=== PATIENT | male | born 1985 | race Hispanic/Latino ===

== ENCOUNTER 2017-05-08 17:38 | Emergency (ER) | payer OTHER ==
[2017-05-08] MEDS ORDERED: DILAUDID IV ONE ×2 (20:20→23:06)
[2017-05-08] MEDS ORDERED: TORADOL IV ONE (20:20)
[2017-05-08] MEDS ORDERED: CLEOCIN 600 MG/50 mL 600 MG/50 ML BAG IV ONE (20:20)
[2017-05-08] MEDS ORDERED: BOOSTRIX IM ONE (20:20)
[2017-05-08] MEDS ORDERED: VALIUM IV ONE (20:21)
--- NOTE | 2017-05-08 20:46 | Emergency Department Report ---
- General Chief complaint: Skin/Abscess/Foreign Body Stated complaint: LEFT FOOT PAIN Time Seen by Provider: 05/08/17 20:04 Source: patient Mode of arrival: Ambulatory Limitations: No Limitations - History of Present Illness Initial comments: 31-year-old withPast medical history presents to Hospital complaints of worsening left foot infection. Patient has a callus at the left fifth MTP area of the plantar surface of the foot. Patient had a chronic callous and had been picking at the area prior to start of infection. The callus began to have redness and purulent drainage 10 days ago. He called an urgent care center and Bactrim was prescribed without physical examination. Patient has been on Bactrim for the past 3 days and states that area of redness has increased however, no longer having any active drainage. Patient complains of moderate left foot tenderness at area of infection and generalized foot swelling. Patient denies fevers. Tetanus status unknown. - Related Data Previous Rx's Medication Instructions Recorded Last Taken Type Clindamycin [Clindamycin CAP] 450 mg PO Q6HR 10 Days capsule 05/08/17 Unknown Rx HYDROcodone/APAP 5-325 [[place] 1 each PO Q6HR PRN #20 tablet 05/08/17 Unknown Rx 5/325] Ibuprofen [Motrin] 800 mg PO Q8HR PRN #30 tablet 05/08/17 Unknown Rx Allergies Allergy/AdvReac Type Severity Reaction Status Date / Time No Known Allergies Allergy Unverified 05/08/17 20:20 Abscess Boil HPI - HPI Chief Complaint: Skin/Abscess/Foreign Body Stated Complaint: LEFT FOOT PAIN Time Seen by Provider: 05/08/17 20:04 Home Medications: Previous Rx's Medication Instructions Recorded Last Taken Type Clindamycin [Clindamycin CAP] 450 mg PO Q6HR 10 Days capsule 05/08/17 Unknown Rx HYDROcodone/APAP 5-325 [[place] 1 each PO Q6HR PRN #20 tablet 05/08/17 Unknown Rx 5/325] Ibuprofen [Motrin] 800 mg PO Q8HR PRN #30 tablet 05/08/17 Unknown Rx Allergies/Adverse Reactions: Allergies Allergy/AdvReac Type Severity Reaction Status Date / Time No Known Allergies Allergy Unverified 05/08/17 20:20 ED Review of Systems ROS: Stated complaint: LEFT FOOT PAIN Other details as noted in HPI Comment: All other systems reviewed and negative Other: Constitutional: No fevers chills Eyes: No eye pain visual changes or discharge ENT: No ear pain or throat pain Neck: Denies pain Respiratory: Denies cough wheezing shortness of breath Cardiovascular: Denies chest pain, palpitations, syncope GI: Denies abdominal pain, nausea, vomiting, diarrhea : Denies dysuria Musculoskeletal: as per hpi Skin: as per hpi Neurologic: Denies headache, numbness, weakness Psychiatric: Denies suicidal ideation, hallucinations ED Past Medical Hx - Past Medical History Previous Medical History?: Yes - Surgical History Past Surgical History?: No - Social History Smoking Status: Current Every Day Smoker Substance Use Type: None - Medications Home Medications: Home Medications Medication Instructions Recorded Confirmed Last Taken Type Clindamycin [Clindamycin CAP] 450 mg PO Q6HR 10 Days capsule 05/08/17 Unknown Rx HYDROcodone/APAP 5-325 [[place] 1 each PO Q6HR PRN #20 tablet 05/08/17 Unknown Rx 5/325] Ibuprofen [Motrin] 800 mg PO Q8HR PRN #30 tablet 05/08/17 Unknown Rx ED Physical Exam - General Limitations: No Limitations - Other Other exam information: General: No limitations, patient is alert in no acute distress Head exam: Atraumatic, normocephalic Eyes exam: Normal appearance ENT: Moist mucous membrane Neck exam: Normal inspection, full range of motion, no meningismus nontender Respiratory exam: Clear to auscultation bilateral, no wheezes, rales, crackles Cardiovascular: Normal rate and rhythm, normal heart sounds Abdomen: Soft, nondistended, and nontender, with normal bowel sounds, no rebound, or guarding Extremity: Full range of motion normal inspection no deformity Back: Normal Inspection, full range of motion, no tenderness Neurologic: Alert, oriented x3, cranial nerves intact, no motor or sensory deficit Psychiatric: normal affect, normal mood Skin: Callous noted as left foot fifth MTP area. Positive localized swelling, erythema, and warmth. Generalized left foot swelling with tenderness. Rest streaking noted extending to the mid foot ED Course Vital Signs 05/08/17 17:46 Temperature 98.1 F Pulse Rate 77 Respiratory 18 Rate Blood Pressure 124/80 O2 Sat by Pulse 99 Oximetry - Reevaluation(s) Reevaluation #1: 05/08/17 20:47 Medications ordered: Clindamycin, Toradol, tetanus, Dilaudid, Valium, and awaiting I&D set. Blood sugar pending. Labs pending. xray pending - I & D Left Foot Type of Procedure: Simple Blade Size: 11 I & D Procedure: betadine prep, sterile drapes applied, sterile dressing applied , gauze wick placed Progress: about 2-3 ml of purulent drainage, culture sent ED Medical Decision Making - Lab Data Result diagrams: 05/08/17 21:19 05/08/17 21:16 Lab Results 05/08/17 05/08/17 Range/Units 21:16 21:19 WBC 7.8 (4.5-11.0) K/mm3 RBC 4.28 (3.65-5.03) M/mm3 Hgb 14.2 (11.8-15.2) gm/dl Hct 40.8 (35.5-45.6) % MCV 95 H (84-94) fl MCH 33 H (28-32) pg MCHC 35 H (32-34) % RDW 13.1 L (13.2-15.2) % Plt Count 194 (140-440) K/mm3 Lymph % (Auto) 35.8 H (13.4-35.0) % Hopkins % (Auto) 7.6 H (0.0-7.3) % Eos % (Auto) 7.0 H (0.0-4.3) % Baso % (Auto) 0.7 (0.0-1.8) % Lymph # 2.8 (1.2-5.4) K/mm3 Hopkins # 0.6 (0.0-0.8) K/mm3 Eos # 0.5 H (0.0-0.4) K/mm3 Baso # 0.1 (0.0-0.1) K/mm3 Seg Neutrophils % 48.9 (40.0-70.0) % Seg Neutrophils # 3.8 (1.8-7.7) K/mm3 Sodium 139 (137-145) mmol/L Potassium 4.2 (3.6-5.0) mmol/L Chloride 101.2 (98-107) mmol/L Carbon Dioxide 26 (22-30) mmol/L Anion Gap 16 mmol/L BUN 12 (9-20) mg/dL Creatinine 0.8 (0.8-1.5) mg/dL Estimated GFR > 60 ml/min BUN/Creatinine Ratio 15 % Glucose 88 (75-100) mg/dL Calcium 8.8 (8.4-10.2) mg/dL - Radiology Data Radiology results: report reviewed X-ray left foot: 5 mm metallic linear foreign body plantar lateral junction of the midfoot and hindfoot. No soft tissue gas. No bony abnormality identified - Medical Decision Making Patient tolerated I&D well. Culture sent. Clindamycin provided in the ED and will be added to current medications in addition to pain medicine - Differential Diagnosis abscess, cellulitis, immunocompromise Critical Care Time: No Critical care attestation.: If time is entered above; I have spent that time in minutes in the direct care of this critically ill patient, excluding procedure time. ED Disposition Clinical Impression: Foot abscess, left, Cellulitis of foot, left, Foreign body in foot, left Disposition: DC-01 TO HOME OR SELFCARE Is pt being admited?: No Does the pt Need Aspirin: No Condition: Stable Instructions: Abscess (ED), Cellulitis (ED) Additional Instructions: Taken medication as prescribed. Return in 2 days or follow-up with your primary care doctor for packing removal and wound recheck. Please return if symptoms worsen as indicated by your discharge instructions and as discussed. Avoid soaking the foot but may wash with soapy cloth. You may wash foot with soapy water as tolerated once packing is removed but would still avoid soaking until wound healed. Prescriptions: Clindamycin [Clindamycin CAP] 450 mg PO Q6HR 10 Days capsule HYDROcodone/APAP 5-325 [[place] 5/325] 1 each PO Q6HR PRN #20 tablet PRN Reason: Pain Ibuprofen [Motrin] 800 mg PO Q8HR PRN #30 tablet PRN Reason: Pain Referrals: PRIMARY CARE, [Primary Care Provider] - 2-3 Days Forms: Work/School Release Form(ED) Time of Disposition: 23:09
[2017-05-08 21:37] LABS: Basophils % (Auto) 0.7 % (0.0-1.8); Hematocrit 40.8 % (35.5-45.6); Hemoglobin 14.2 gm/dl (11.8-15.2); Mean Corpuscular HGB Conc 35 % (32-34); Mean Corpuscular Hemoglobin 33 pg (28-32); Mean Corpuscular Volume 95 fl (84-94); Platelet Count 194 K/mm3 (140-440); Red Blood Count 4.28 M/mm3 (3.65-5.03); Red Cell Distribution Width 13.1 % (13.2-15.2); White Blood Count 7.8 K/mm3 (4.5-11.0)
[2017-05-08 21:49] LABS: Anion Gap 16 mmol/L; BUN/Creatinine Ratio 15; Blood Urea Nitrogen 12 mg/dL (9-20); Calcium 8.8 mg/dL (8.4-10.2); Carbon Dioxide 26 mmol/L (22-30); Chloride 101.2 mmol/L (98-107); Glucose 88 mg/dL (75-100); Potassium 4.2 mmol/L (3.6-5.0); Sodium 139 mmol/L (137-145)
--- NOTE | 2017-05-08 21:49 | XRay Report ---
FINAL REPORT EXAM: XR FOOT 3+V LT HISTORY: left foot infection TECHNIQUE: Three views left foot Comparison: None FINDINGS: There is a 5 millimeter metallic linear density projecting over the plantar lateral soft tissues at the junction of the midfoot with the hindfoot. There is no fracture or dislocation. There is no focal osteolysis to suggest osteomyelitis. There is no bony abnormality. There is no soft tissue gas. IMPRESSION: 5 millimeter metallic linear foreign body plantar lateral junction of the midfoot with the hindfoot, marked on the oblique image of the foot. No soft tissue gas. No bony abnormality identified.
[2017-05-08] MEDS ORDERED: XYLOCAINE 2% INFILTRATI ONE (22:36)
[2017-05-08] MEDS ORDERED: XYLOCAINE 1% 20 mL INFILTRATI ONE (23:02)
[2017-05-09 00:58] VITALS: BP 118/72
== END 2017-05-08 23:35 | disposition home or self-care (01) ==
LOC: ED 17:38
DX: L02.612 Cutaneous abscess of left foot (principal); L03.116 Cellulitis of left lower limb; F17.200 Nicotine dependence, unspecified, uncomplicated
CPT/HCPCS: 10060; 36415; 73630; 80048; 85025; 87076; 87116; 87186; 90471; 90715; 96365; 96375; 96376; 99284; J1170; J1885; J3360; 96374

== ENCOUNTER 2017-05-11 08:10 | Emergency (ER) | payer OTHER ==
[2017-05-11 09:20] VITALS: BP 114/80
[2017-05-11] MEDS ORDERED: TRIPLE ANTIBIOTIC TP ONE (10:34)
--- NOTE | 2017-05-11 10:40 | Emergency Department Report ---
Suture/Staple Removal - HPI Chief Complaint: Extremity Injury, Lower Stated Complaint: LEFT FOOT NEEDS NEW DRESSING Time Seen by Provider: 05/11/17 10:24 When Sutures or [place] Placed: 3 Wound Location: left foot ED Review of Systems ROS: Stated complaint: LEFT FOOT NEEDS NEW DRESSING Other details as noted in HPI Comment: All other systems reviewed and negative Constitutional: denies: chills, fever Gastrointestinal: vomiting (after taking a norco ), other (tolerating po clindamycin ). denies: abdominal pain, diarrhea Musculoskeletal: other (L foot pain ). denies: joint swelling Skin: change in color ED Past Medical Hx - Past Medical History Previous Medical History?: No - Surgical History Past Surgical History?: No - Social History Smoking Status: Current Every Day Smoker Substance Use Type: Prescribed - Medications Home Medications: Home Medications Medication Instructions Recorded Confirmed Last Taken Type Clindamycin [Clindamycin CAP] 450 mg PO Q6HR 10 Days capsule 05/08/17 Unknown Rx Ibuprofen [Motrin 800 MG tab] 800 mg PO Q8HR PRN #30 tablet 05/08/17 Unknown Rx Mupirocin [Bactroban 2%] 1 applic TP TID 5 Days tube 05/11/17 Unknown Rx traMADol [Ultram] 50 mg PO Q6HR PRN #12 tablet 05/11/17 Unknown Rx Suture Removal Exam - Exam General: Vital signs noted. No distress. Alert and acting appropriately. Wound: Yes Pathologic Erythema (small amount of local erythmea ), Yes Tenderness , Yes Drainage, Yes Pus Other Systems: All other systems reviewed and are unremarkable. ED Course Vital Signs 05/11/17 09:15 Temperature 98.7 F Pulse Rate 98 H Respiratory 16 Rate Blood Pressure 114/80 O2 Sat by Pulse 100 Oximetry - Reevaluation(s) Reevaluation #1: 05/11/17 10:36 moderate drainage noted after packing removed. I and D site too small to pack. Offered repeat I and D, pt declined. Verbal home care instructions reviewed. Pt instructed to continue antibiotics and use crutches as needed. Strict return precautions reviewed. PT has no questions at this time. Reevaluation #2: 05/11/17 10:40 pt aware culture positive for staph - Pulse Oximetry Interpretation Digit-Finger Initial Pulse Oximetry Readin Actions Taken: none ED Recheck MDM - Differential Diagnosis Cellultitis Recheck, Cutananeous Abscess reche Critical Care Time: No Critical care attestation.: If time is entered above; I have spent that time in minutes in the direct care of this critically ill patient, excluding procedure time. ED Disposition Clinical Impression: Foot abscess, left, Encounter for abscess packing removal Disposition: TO HOME OR SELFCARE Is pt being admited?: No Does the pt Need Aspirin: No Condition: Stable Instructions: Acute Wound Care (ED) Additional Instructions: Warm compresses/ soaks at least 6 times a day topical antibiotic ointment to site if RX cream is too expensive continue antibiotics and crutches. Follow up with PCP in 3-5 days return to ED if worsening redness or pain No driving or alcohol after taking Ultram Prescriptions: Mupirocin [Bactroban 2%] 1 applic TP TID 5 Days tube traMADol [Ultram] 50 mg PO Q6HR PRN #12 tablet PRN Reason: Pain Referrals: PRIMARY CARE, [Primary Care Provider] - 3-5 Days JOLIE VIVEROS MD [Staff Physician] - 3-5 Days Forms: Accompanied Note, Work/School Release Form(ED) Time of Disposition: 10:41
== END 2017-05-11 10:51 | disposition home or self-care (01) ==
LOC: ED 08:10
DX: L02.612 Cutaneous abscess of left foot (principal); F17.200 Nicotine dependence, unspecified, uncomplicated
CPT/HCPCS: 99282; A6250